=== PATIENT | female | born 1950 | race Caucasian/White ===

== ENCOUNTER → 2016-04-28 | Outpatient (CLI) | payer OTHER ==
[~2016-04-28] MED LIST: CHEMO IV; CITA40TA4 PO; CMP10 PO; DIPH-437 PO; ESTR0.5T3 PO; GREEPOW2 PO; HYDR-5688 PO; OMEP20CA9 PO; ONDA8TAB7 PO; POLY335025 PO; TYLOTC500 PO
--- NOTE | 2016-04-28 12:03 | Discharge Instructions ---
Discharge Instructions Procedure Procedure Date: Apr 28, 2016. Reason for visit: Right Axillary Lymph Node. Discharge Discharge Date: Apr 28, 2016. Discharge Diagnosis: Right axillary lymph node Instructions Activity Recommendations: No limitations Return to School/Work: no limitations Recommended Home Diet: Resume Previous Diet Provider Instructions: Ultrasound guided fine needle aspiration of a right axillary lymph node was performed with 3 passes utilizing 25-gauge needles. Specimens were reviewed by the pathologist in real-time and deemed adequate for diagnosis. There were no immediate complications. Allergies Coded Allergies: No Known Allergies (Verified , 06/04/14) [employer] [employer] Recommendations: Call your doctor if: * Temperature above 101 degrees * Pain not relieved by pain medicine ordered * There is increased drainage or redness from any incision * You have any unanswered questions or concerns. Your Doctors Instructions noted above were prepared by provider Hiren Joiner. Patient Signature Section: Patient Instructions Signature Page Yana Jakub Patient (or Guardian) Signature/Date: I have read and understand the instructions given to me by my caregivers. Caregiver/RN/Doctor Signature/Date: The above-named patient and/or guardian has received patient instructions on this date. + Original Patient Signature Page (only) stays with chart. Please make copy for patient.
--- NOTE | 2016-04-28 13:02 | DIAGNOSTIC IMAGING REPORT ---
ULTRASOUND-GUIDED FINE-NEEDLE ASPIRATION RIGHT AXILLARY LYMPH NODE CLINICAL HISTORY. FDG avid right axillary lymph node. History of lung cancer and pancreatic cancer. COMPARISON STUDY: PET/CT dated 04/13/2016. PROCEDURE: The risks, benefits, and alternatives to the procedure were discussed with the patient. Written informed consent was obtained. The patient was placed supine in ultrasound, and a 10 mm lymph node in the right axillary region was localized by ultrasound and selected for fine needle aspiration. This node appears heterogeneous and likely corresponds to the FDG avid lymph node of concern seen by PET. No additional concerning lymph nodes were identified. The right axilla was prepped and draped in the usual sterile fashion. The lymph node was aspirated under ultrasound guidance with 3 passes utilizing 25-gauge needles. The first 2 passes were reviewed by the pathologist in real-time and confirm the presence of lymphoid material. Material from the third pass was submitted for flow cytometry. The patient tolerated the procedure well and left the department in satisfactory condition. IMPRESSION: Completed fine-needle aspiration of a right axillary lymph node as above. Electronically signed by: Hiren Joiner M.D. 04/28/2016 1:00 PM Dictated Date/Time: 04/28/2016 12:57 PM
[2016-05-02 11:47] LABS: NEO FLOW LYMPH/LEUK STND SEE NEO MISC
== END | disposition home or self-care (01) ==
LOC: C.ULTR 10:23
PROVIDERS: ATTEND Internal Medicine Hematology
DX: R59.0 Localized enlarged lymph nodes (principal)

== ENCOUNTER 2017-02-06 15:52 | Inpatient (IN) | payer OTHER ==
[2017-02-06] VITALS (7 sets, daily range): BP systolic 152–173; BP diastolic 79–92; PULSE 81–93; TEMP 36.9–37.2; O2SAT 93–96; Ht 170.2 cm; Wt 81.3 kg
[~2017-02-06] VITALS: Ht 170.2 cm; Wt 81.3 kg
[2017-02-06] MEDS ORDERED: PANC6000 PO (17:06)
[2017-02-06] MEDS ORDERED: PANC24002 PO (17:06)
[2017-02-06] MEDS ORDERED: MISCCAP80 PO (17:06)
[2017-02-06 17:09] LABS: URINE APPEARANCE CLOUDY (CLEAR); URINE BILIRUBIN NEG (NEG); URINE COLOR DK YELLOW; URINE NITRITE POS (NEG); URINE PH 5.5 (4.5-7.5); URINE SPECIFIC GRAVITY 1.021 (1.000-1.030); UROBILINOGEN NEG (NEG)
[2017-02-06 17:15] LABS: INR 1.2 (0.9-1.1); PROTHROMBIN TIME (PATIENT) 12.7 SECONDS (9.0-12.0)
[2017-02-06 17:18] LABS: MANUAL MICROSCOPIC REQUIRED? NO; REVIEW REQ? NO
[2017-02-06 17:22] LABS: CALCIUM 8.6 mg/dl (8.5-10.1); CREATININE 0.67 mg/dl (0.60-1.20)
[2017-02-06] MEDS ORDERED: CEFTRIAXONE SOD INJ 1 GM ADDVIAL IV STA (17:53)
[2017-02-06 18:24] LABS: ANISOCYTOSIS PRESENT; HEMATOCRIT 23.7 % (37-47); LYMPH ABS # 0.45 K/uL (1.2-3.4); MEAN CELL VOLUME 88.4 fL (80-100); MEAN CORPUSCULAR HEMOGLOBIN 30.2 pg (25-34); MEAN CORPUSCULAR HGB CONC 34.2 g/dl (32-36); OVALOCYTES 2+; PLATELET COUNT 7 K/uL (130-400); POLYCHROMASIA 1+; RED BLOOD COUNT 2.68 M/uL (4.2-5.4); TEAR DROP CELLS 1+; VARIANT LYM ABS # 0.24 K/uL; WHITE BLOOD COUNT 1.86 K/uL (4.8-10.8)
[2017-02-06 18:25] LABS: COMPLETE YES
[2017-02-06] MEDS ORDERED: CEFEPIME IV 1,000 MG in DEXTROSE 5% 100ML 100 ML IV STA (18:34)
--- NOTE | 2017-02-06 19:05 | DIAGNOSTIC IMAGING REPORT ---
SINGLE VIEW CHEST CLINICAL HISTORY: Cough. FINDINGS: An AP, portable, upright chest radiograph is compared to study dated 06/28/2014 and correlated with PET/CT dated 12/30/2015. A left subclavian central venous infusion port is unchanged in position. The heart is mildly enlarged and there is atherosclerotic calcification of the thoracic aorta. Numerous bilateral pulmonary masses are identified and consistent with multifocal pulmonary metastatic disease. These lesions have increased in size from the 12/30/2015 PET examination. There is no evidence of superimposed airspace consolidation or large pleural effusion. No pneumothorax is seen. The skeletal structures are osteopenic. The bony thorax is grossly intact. Arthritic change is seen in the shoulders. IMPRESSION: 1. There is evidence of multifocal pulmonary metastatic disease. These lesions have increased in size from the 12/30/2015 PET examination. 2. There is no radiographic evidence of superimposed airspace consolidation or pleural effusion. 3. Mild cardiac enlargement. There is no radiographic evidence of congestive failure. Electronically signed by: Hiren Joiner M.D. 02/06/2017 7:03 PM Dictated Date/Time: 02/06/2017 7:01 PM
[2017-02-06] MEDS ORDERED: OPTIRAY 320 IV PRN (20:45)
[2017-02-06] MEDS ORDERED: PANTOprazole INJ 80 MG in SYRINGE 0 ML IV STA (21:25)
--- NOTE | 2017-02-06 21:57 | EMERGENCY ROOM VISIT NOTE ---
History Report prepared by Ngozi: Steve Andrews Under the Supervision of: Dr. Aubrey Barcenas M.D. First contact with patient: 15:58 Chief Complaint: REFERRED BY DOCTOR Stated Complaint: BLOOD TRANSFUSION NEEDED-SENT BY 'S OFFICE History of Present Illness The patient is a 66 year old female who presents to the Emergency Room with complaints of a low platelet count. She was referred to the ER by her PCP's office for a platelet count of 7,000. She has a past medical history of resolved pancreatic cancer and current lung cancer. Over the past week, she has noticed that she has been pale, short of breath, and lethargic. She also is having an abnormal amount of bruising to her body. This morning, the patient coughed up a could of drops of light red blood. She denies any epistaxis. Her last chemotherapy was March 2016. Pt denies LOC, headache, fevers, chills, diaphoresis, visual changes, neck pain, chest pain, nausea, vomiting, abdominal pain, back pain, melena, hematochezia, urinary symptoms, numbness, weakness, lymphadenopathy, rash, or other complaints. Source of History: patient Onset: recently Position: other (Global) Symptom Intensity: 7000 Quality: other (Low platelet counts) Timing: waxes/wanes Associated Symptoms: + cough, + SOB, + fatigue Review of Systems See HPI for pertinent positives and negatives. A total of ten systems were reviewed and were otherwise negative. Past Medical & Surgical Medical Problems: (1) Pancreatic cancer Surgical Problems: (1) H/O: hysterectomy (2) History of hip replacement Family History Cancer Gallbladder disease Heart disease Hypertension Kidney disease Lung disease Social History Smoking Status: Former Smoker Marital Status: Housing Status: lives with significant other Occupation Status: retired Current/Historical Medications Scheduled Acetaminophen/Diphenhydramine (Tylenol Pm), 1 TAB PO HS PRN Citalopram (Citalopram Hydrobromide), 40 MG PO QAM Green Tea (Camillia Sinensis) (Green Tea), 1 DOSE PO DAILY Omeprazole (Prilosec), 20 MG PO DAILY Pancrelipase (Lipase-Protease- (Creon), 2 CAP PO WM Pancrelipase (Lipase-Protease- (Creon), 1 CAP PO SNACKS Probiotic Product (Probiotic), 1 CAP PO DAILY Scheduled PRN Acetaminophen (Tylenol), 1,000 MG PO Q6 PRN for Pain or Fever Polyethylene Glycol 3350 (Miralax), 1 DOSE PO DAILY PRN for Constipation Allergies Coded Allergies: No Known Allergies (Verified , 02/06/17) Physical Exam Vital Signs Date Time Temp Pulse Resp B/P (MAP) Pulse Ox O2 Delivery O2 Flow Rate FiO2 02/06/17 21:19 37.2 85 20 152/92 93 02/06/17 20:46 37.2 85 20 158/91 95 Room Air 02/06/17 20:42 96 02/06/17 20:30 37.2 85 20 158/91 95 02/06/17 20:15 37.0 87 20 173/84 95 02/06/17 19:55 37.0 85 20 152/89 96 02/06/17 19:55 152/79 02/06/17 19:42 37.0 84 20 152/79 95 02/06/17 18:50 83 20 120/69 95 Room Air 02/06/17 17:50 99 20 149/76 95 Room Air 02/06/17 16:41 97 Room Air 02/06/17 16:30 78 20 124/83 98 Room Air 02/06/17 16:28 90 02/06/17 15:59 36.9 94 20 143/85 96 Room Air Physical Exam GENERAL: Awake, alert, well-appearing, in no distress HENT: Normocephalic, atraumatic. Oropharynx unremarkable. EYES: Normal conjunctiva. Sclera non-icteric. NECK: Supple. No nuchal rigidity. FROM. No JVD. OROPHARYNX: Palatal petechiae. RESPIRATORY: Clear to auscultation. CARDIAC: Regular rate, normal rhythm. Extremities warm and well perfused. Pulses equal. ABDOMEN: Soft, non-distended. No tenderness to palpation. No rebound or guarding. No masses. RECTAL: Deferred. MUSCULOSKELETAL: Chest examination reveals no tenderness. The back is symmetrical on inspection without obvious abnormality. There is no CVA tenderness to palpation. No joint edema. UPPER EXTREMITIES: Scattered petechiae noted bilaterally. LOWER EXTREMITIES: Calves are equal size bilaterally and non-tender. No edema. No discoloration. Scattered petechiae noted bilaterally. NEURO: Normal sensorium. No sensory or motor deficits noted. SKIN: Pale. No rash or jaundice noted. Medical Decision & Procedures ER Provider Diagnostic Interpretation: Radiology results as stated below per my review and radiologist interpretation: SINGLE VIEW CHEST CLINICAL HISTORY: Cough. FINDINGS: An AP, portable, upright chest radiograph is compared to study dated 06/28/2014 and correlated with PET/CT dated 12/30/2015. A left subclavian central venous infusion port is unchanged in position. The heart is mildly enlarged and there is atherosclerotic calcification of the thoracic aorta. Numerous bilateral pulmonary masses are identified and consistent with multifocal pulmonary metastatic disease. These lesions have increased in size from the 12/30/2015 PET examination. There is no evidence of superimposed airspace consolidation or large pleural effusion. No pneumothorax is seen. The skeletal structures are osteopenic. The bony thorax is grossly intact. Arthritic change is seen in the shoulders. IMPRESSION: 1. There is evidence of multifocal pulmonary metastatic disease. These lesions have increased in size from the 12/30/2015 PET examination. 2. There is no radiographic evidence of superimposed airspace consolidation or pleural effusion. 3. Mild cardiac enlargement. There is no radiographic evidence of congestive failure. Electronically signed by: Hiren Joiner M.D. 02/06/2017 7:03 PM Dictated Date/Time: 02/06/2017 7:01 PM Laboratory Results 02/06/17 16:12 Red Blood Count 2.68, Mean Corpuscular Volume 88.4, Mean Corpuscular Hemoglobin 30.2, Mean Corpuscular Hemoglobin Concent 34.2 02/06/17 16:12 Test 02/06/17 16:12 02/06/17 16:40 White Blood Count 1.86 K/uL (4.8-10.8) Red Blood Count 2.68 M/uL (4.2-5.4) Hemoglobin 8.1 g/dL (12.0-16.0) Hematocrit 23.7 % (37-47) Mean Corpuscular Volume 88.4 fL (80-100) Mean Corpuscular Hemoglobin 30.2 pg (25-34) Mean Corpuscular Hemoglobin Concent 34.2 g/dl (32-36) Platelet Count 7 K/uL (130-400) RDW Standard Deviation 56.1 fL (36.4-46.3) RDW Coefficient of Variation 18.1 % (11.5-14.5) Neutrophils % (Manual) 22.0 % Lymphocytes % (Manual) 24.0 % Variant Lymphocytes % (manual) 13.0 % Monocytes % (Manual) 1.0 % Promyelocytes % 3.0 % Blast Cells % 37.0 % Neutrophils # (Manual) 0.41 K/uL (1.4-6.5) Total Absolute Neutrophils 0.41 K/uL (1.4-6.5) Lymphocytes # (Manual) 0.45 K/uL (1.2-3.4) Absolute Variant Lymphocytes 0.24 K/uL Total Absolute Lymphocytes 0.69 K/uL (1.2-3.4) Monocytes # (Manual) 0.02 K/uL (0.11-0.59) Promyelocytes # 0.06 K/uL (0-0) Blast Cells # 0.69 K/uL (0-0) Polychromasia 1+ Anisocytosis PRESENT Macrocytosis PRESENT Tear Drop Cells 1+ Ovalocytes 2+ Prothrombin Time 12.7 SECONDS (9.0-12.0) Prothromb Time International Ratio 1.2 (0.9-1.1) Activated Partial Thromboplast Time 50.8 SECONDS (21.0-31.0) Partial Thromboplastin Ratio 2.0 Anion Gap 6.0 mmol/L (3-11) Est Creatinine Clear Calc Drug Dose 88.1 ml/min Estimated GFR () 104.7 Estimated GFR (Non- 90.3 BUN/Creatinine Ratio 20.0 (10-20) Calcium Level 8.6 mg/dl (8.5-10.1) Magnesium Level 2.1 mg/dl (1.8-2.4) Total Bilirubin 0.7 mg/dl (0.2-1) Direct Bilirubin 0.2 mg/dl (0-0.2) Aspartate Amino Transf (AST/SGOT) 15 U/L (15-37) Alanine Aminotransferase (ALT/SGPT) 26 U/L (12-78) Alkaline Phosphatase 118 U/L (45-117) Total Protein 6.1 gm/dl (6.4-8.2) Albumin 3.3 gm/dl (3.4-5.0) Lipase 36 U/L (73-393) Urine Color DK YELLOW Urine Appearance CLOUDY (CLEAR) Urine pH 5.5 (4.5-7.5) Urine Specific Gobles 1.021 (1.000-1.030) Urine Protein NEG (NEG) Urine Glucose (UA) NEG (NEG) Urine Ketones TRACE (NEG) Urine Occult Blood NEG (NEG) Urine Nitrite POS (NEG) Urine Bilirubin NEG (NEG) Urine Urobilinogen NEG (NEG) Urine Leukocyte Esterase TRACE (NEG) Urine WBC (Auto) 1-5 /hpf (0-5) Urine RBC (Auto) 0-4 /hpf (0-4) Urine Hyaline Casts (Auto) 1-5 /lpf (0-5) Urine Epithelial Cells (Auto) 10-20 /lpf (0-5) Urine Bacteria (Auto) 4+ (NEG) Laboratory results reviewed by ks Medications Administered Medications (Trade) Dose Ordered Sig/Bora Route Start Time Stop Time Status Last Admin Dose Admin Cefepime HCl 1000 mg/Dextrose 111.3 ml @ 200 mls/hr NOW STAT IV 02/06/17 18:34 02/06/17 19:07 DC 02/06/17 18:52 200 MLS/HR ECG Indication: SOB/dyspnea Rate (beats per minute): 95 Rhythm: normal sinus Findings: no acute ischemic change, no ectopy ED Course 1558: The patient was evaluated in room B10. A complete history and physical exam was performed. 1753: Ordered Rocephin Inj 1 gm IV 1834; Ordered Cefepime HCl 1000 mg/Dextrose 111.3 ml @ 200 mls/hr IV 1906: Upon reexamination, the patient was resting. I discussed the test results and treatment plan with her. The patient will be evaluated by Maral Sauceda, for further management. Medical Decision Triage Nursing notes reviewed. The patient's presentation and history were concerning for easy bleeding and possible thrombocytopenia. Patient was evaluated. Blood work was obtained. She had a significant pancytopenia noted on CBC. Chemistry panel is unremarkable. The patient had a neutropenia noted on her differential. Urinalysis revealed signs of infection. The patient was given IV cefepime. Consultation was made with her oncologist , Dr. Galaviz. He recommended a platelet transfusion. This was ordered. The patient was consented. Platelets were administered. Consultation was made with the [facility] hospitalist service. The patient was evaluated in the Emergency Room for further management. Medication Reconcilliation Current Medication List: was personally reviewed by me Blood Pressure Screening Patient's blood pressure: Elevated blood pressure Blood pressure disposition: Elevated BP felt to be situational Consults Time Called: [phone] Consulting Physician: Maral Sauceda Returned Call: [phone] Discussed the patient's case. The patient will be evaluated for further treatment and disposition. Impression Primary Impression: Pancytopenia Additional Impressions: Neutropenia UTI (urinary tract infection) Scribe Attestation The scribe's documentation has been prepared under my direction and personally reviewed by me in its entirety. I confirm that the note above accurately reflects all work, treatment, procedures, and medical decision making performed by me. Departure Information Dispostion Being Evaluated By Hospitalist Referrals Clemente Galaviz M.D. (PCP) Patient Instructions My [facility] [address] Problem Qualifiers
[2017-02-06] MEDS ORDERED: ALBUT/IPRATROP 3MG/0.5MG NEB 3 ML VIAL INH PRN (22:30)
--- NOTE | 2017-02-06 22:48 | DIAGNOSTIC IMAGING REPORT ---
CT ANGIOGRAM OF THE CHEST; CT SCAN OF THE ABDOMEN AND PELVIS WITH IV CONTRAST CLINICAL HISTORY: Atypical chest pain. Generalized abdominal pain. History of non-small cell lung cancer an pancreatic cancer. COMPARISON STUDY: Chest x-ray dated 02/06/2017. PET/CT dated 12/30/2015. TECHNIQUE: Following the IV administration of 120 of Optiray 320, CT angiogram of the chest is performed from the upper abdomen to the thoracic inlet using the pulmonary embolus protocol. CT scan of the abdomen and pelvis was then performed from the lung bases to the proximal femora. Images are reviewed in the axial, sagittal, and coronal planes. 3-D MIPS images of the chest were created and assessed. IV contrast was administered without complication. Automated dose control exposure was utilized. A dose lowering technique was utilized adhering to the principles of ALARA. CT DOSE: 2068.08 mGy.cm FINDINGS: CHEST: Thyroid: Imaged portions of the thyroid gland are normal in size and attenuation. There are numerous thyroid nodules. The largest appears hypervascular and is located in the right lobe measuring 1.7 cm. Thoracic aorta: The thoracic aorta is normal in caliber and demonstrates standard 3-vessel arch anatomy. No dissection is seen. A left subclavian central venous infusion port is in place. Pulmonary vasculature: The pulmonary trunk is normal in caliber. There are no filling defects identified in the main, lobar, or segmental pulmonary arteries to indicate pulmonary embolus. Heart: The heart is normal in size and configuration, and without pericardial effusion. Lungs and pleural spaces: There are numerous (greater than 20) large pulmonary mass lesions. Some of these contain central calcifications and foci of central cavitation. The appearance is consistent with multifocal pulmonary metastatic disease. A large lesion in the anterior right upper lobe on image #228 measures approximately 6 x 3 cm. A large lesion at the posterior right lung base on image #116 measures approximate 7 x 4 cm. A lesion in the left lower lobe on image #129 measures approximately 5 x 4 cm. Patchy airspace consolidation is identified in the right lower lobe. No pleural effusion is seen. The trachea and central airways are clear. Mediastinum: There are scattered subcentimeter mediastinal lymph nodes. These are not pathologically enlarged by size criteria. [place]: There are calcified hilar lymph nodes. No hilar adenopathy is identified. Axillae: There is no axillary lymphadenopathy. Bony thorax: The skeletal structures are heterogeneously osteopenic. No definite lytic or blastic lesions are identified. Advanced arthritic change is present in the shoulders. ABDOMEN AND PELVIS: Liver: The contrast-enhanced liver is normal in size and contour. The liver demonstrates diffusely diminished attenuation consistent with hepatic steatosis. There is trace pneumobilia. There is no intrahepatic or ductal dilatation. The hepatic veins and portal veins are patent. An ovoid hypervascular lesion in segment VIII measures 2.4 cm as seen on image #51. A subcentimeter hypervascular focus is seen in segment V on axial image #127. A 3.1 cm cystic lesion on the anterior aspect of the left lobe seen on image #56 is unchanged from previous. Gallbladder: Surgically absent noting clips in the gallbladder fossa. Spleen: Normal in size and attenuation. Pancreas: The pancreas is atrophic. A pancreatic stent is in place. There is peripancreatic stranding and trace fluid suggesting acute pancreatitis. No organized peripancreatic fluid collection is identified. The splenic vein is patent. Adrenal glands: A 1.4 cm nodule arising from or located adjacent to the right adrenal gland is unchanged from 12/30/2015 as seen on image #129. The adrenal glands are otherwise normal in appearance. Kidneys: The contrast enhanced kidneys demonstrate mild cortical atrophy and are without hydronephrosis. The kidneys enhance symmetrically. Scattered subcentimeter cortical hypodensities likely represent cysts but are too small for definitive characterization. Abdominal vasculature: The abdominal aorta is normal in course and caliber noting mild atherosclerotic calcification. Stomach and bowel: The duodenum is normal in configuration. There are large ventral hernias which contain nonobstructed loops of small bowel and colon. No bowel obstruction is seen. The appendix is well-visualized and normal. Peritoneum: There is no intraperitoneal free air or abdominal ascites. There is a fat-containing umbilical/ventral hernia. Lymphadenopathy: Prominent peripancreatic and portacaval nodes measure up to 10 mm short axis. Metallic fiducials are suggested in the portacaval node on image #117. An implant/node anterior to the abdominal aorta is seen on image #168 and measures 1.8 cm. Pelvic viscera: Evaluation of the pelvis is degraded by streak artifact from a right hip arthroplasty. The bladder, uterus, and adnexa are normal as visualized. Skeletal structures: The skeletal structures are heterogeneously osteopenic. Mild lumbosacral spondylosis is observed. No definite lytic or blastic lesions are seen. A right hip arthroplasty is in place. IMPRESSION: 1. There is no evidence of pulmonary embolus in the main, lobar, or segmental pulmonary arteries. 2. There is evidence of diffuse/multifocal pulmonary metastatic disease. These lesions have increased in size from the 12/30/2015 PET examination. 3. There is patchy airspace consolidation seen throughout the right lower lobe, likely representing an infectious/inflammatory pneumonitis. Clinical correlation will be required. 4. A pancreatic stent is in place. There is peripancreatic stranding and trace fluid, typical in appearance for acute pancreatitis. Correlation with the patient's serum amylase/lipase levels will be required. 5. There is a 2.4 cm ovoid lesion seen in hepatic segment VIII. This is markedly hypervascular and atypical in appearance for metastatic disease. Given the appearance a vascular lesion such as aneurysm/pseudoaneurysm is suspected, especially if there has been previous instrumentation. Other etiologies such as hypervascular metastasis or hemangioma are considered less likely. This could not be seen in the 12/30/2015 PET examination; however, comparison is significantly suboptimal due to lack of IV contrast on the prior study. Clinical correlation will be essential. 6. Hepatic steatosis. 7. Mildly enlarged peripancreatic lymph nodes, a lesion within/adjacent to the right adrenal gland, and an implant along the anterior aspect of the abdominal aorta are concerning for metastatic disease. Fiducials are identified in this region. 8. There are ventral hernias containing nonobstructed loops of small bowel and colon. No bowel obstruction is identified. 9. Additional findings as above. Electronically signed by: Hiren Joiner M.D. 02/06/2017 10:13 PM Dictated Date/Time: 02/06/2017 9:46 PM
--- NOTE | 2017-02-06 22:48 | DIAGNOSTIC IMAGING REPORT ---
CT SCAN OF THE BRAIN WITHOUT IV CONTRAST CLINICAL HISTORY: Headache. COMPARISON STUDY: No priors. TECHNIQUE: Unenhanced axial CT scan of the brain is performed from the vertex to the skull base. FINDINGS: Brain parenchyma: There are age-related involutional changes noting minimal subcortical and periventricular microangiopathic change. There is no hemorrhage, mass effect, or evidence of acute territorial ischemia by CT criteria. Cordon-white matter is preserved. No extra-axial fluid collection is seen. Ventricles, sulci, cisterns: Prominent secondary to involutional change. Intracranial vasculature: Intracranial vessels at the skull base are normal as visualized. Calvarium: Unremarkable. Sinuses and mastoids: The visualized paranasal sinuses are clear. The mastoid air cells are well pneumatized. Orbits: The bony orbits are grossly intact. IMPRESSION: There is no hemorrhage, mass effect, or evidence of acute territorial ischemia by CT criteria. Electronically signed by: Hiren Joiner M.D. 02/06/2017 9:48 PM Dictated Date/Time: 02/06/2017 9:47 PM
[2017-02-06] MEDS ORDERED: ALBUT/IPRATROP 3MG/0.5MG NEB 3 ML VIAL INH STA (23:13)
--- NOTE | 2017-02-06 23:13 | HISTORY & PHYSICAL EXAMINATION ---
DATE OF ADMISSION: 02/06/2017 PRIMARY CARE PHYSICIAN: Yoly Foy MD. CHIEF COMPLAINT: Abnormal blood work. HISTORY OF PRESENT ILLNESS: History obtained from patient and records. Medical history is significant for pancreatic cancer status post surgery/ chemotherapy 2014, NSCLC (adenocarcinoma) sp chemotherapy 2015, past tobacco abuse, history of ataxia telangiectasia mutation as per records, recurrent UTIs secondary to chronic interstitial cystitis , mood disorder. In June 2015, the patient was noted to have incidental findings of new bilateral lung nodules on CT surveillance study for her pancreatic cancer. FNA showed adenocarcinoma. Patient underwent wedge resection of left lower lobe nodule. Chemotherapy from September to March 2016 by [facility]. She subsequently decided to hold off any kind of treatments. Outpatient blood work last July 2016 showed white cell count of 3.69, Hemoglobin drop to 10 from normal baselines. In the last few weeks, the patient noted easy bruising. She also noted dark stools, some vague left-sided abdominal discomfort. Denies excessive intake of NSAIDs. No hematemesis. Last 2 weeks, the patient also noted different smelly urine. Yesterday, patient noted noisy breathing like "bubbles in my chest." Some shortness of breath on exertion. This morning, px woke up with hemoptysis. achy headache symptoms as well. Outpatient lab work showed hemoglobin of 8.6, hematocrit 27, white cell count 2.3, platelets noted to be 7. Patient sent to the Emergency Room. One unit pheresed platelets transfused. Px given ceftriaxone for UTI. MEDICAL HISTORY: colonoscopy October 2013 showed hyperplastic polyp and diverticulosis. SURGERIES: She had hysterectomy, oophorectomy, Whipple procedure, tubal ligation, tonsillectomy, partial Whipple procedure, hip replacement, lung nodule biopsy. HOME MEDICATIONS: Includes Creon, MiraLax, probiotic, Tylenol, citalopram, green tea, Prilosec. ALLERGIES: No known drug allergies. FAMILY HISTORY: Kidney cancer, heart disease, skin cancer. PERSONAL AND SOCIAL HISTORY: Past tobacco abuse, no chronic intake of alcoholic beverages. Retired field case manager. REVIEW OF SYSTEMS: As per HPI, all other ROS negative. PHYSICAL EXAMINATION: VITAL SIGNS: Blood pressure was noted to be 120/69, pulse rate 83, RR 22, T 37 sats 95% on room air. GENERAL: Noted to be pleasant, no respiratory distress. SKIN: Pallor, ecchymosis on the arms. warm. HEENT: Pale palpebral conjuctivae. Dry buccal mucosa. Pupils equally reactive to light. Dry buccal mucosa. NECK: Short neck. No JVD. Supple, no tenderness. CHEST: Rhonchi, no tenderness. ABDOMEN: Some distension, nontender. RECTAL: Intact sphincter, dark stool, heme positive. EXTREMITIES: Minimal LE edema, no tenderness, No gross deformities. NEUROLOGIC: Coherent. No gross focality. LABORATORIES: Hemoglobin was noted to be 8.1, hematocrit 30.7, white cell count 1.86, platelets noted to be 7. Sodium 137, potassium 4, chloride 105, CO2 26, BUN 40, creatinine 0.6, glucose 154. Chest x-ray, multi focal pulmonary metastatic disease, increased in size from 2015 PET exam, mild cardiac enlargement. CT head no acute pathology CT chest, abdomen and pelvis : 1. There is no evidence of pulmonary embolus in the main, lobar, or segmental pulmonary arteries. 2. There is evidence of diffuse/multifocal pulmonary metastatic disease. These lesions have increased in size from the 12/30/2015 PET examination. 3. There is patchy airspace consolidation seen throughout the right lower lobe, likely representing an infectious/inflammatory pneumonitis. Clinical correlation will be required. 4. A pancreatic stent is in place. There is peripancreatic stranding and trace fluid, typical in appearance for acute pancreatitis. Correlation with the patient's serum amylase/lipase levels will be required. 5. There is a 2.4 cm ovoid lesion seen in hepatic segment VIII. This is markedly hypervascular and atypical in appearance for metastatic disease. Given the appearance a vascular lesion such as aneurysm/pseudoaneurysm is suspected, especially if there has been previous instrumentation. Other etiologies such as hypervascular metastasis or hemangioma are considered less likely. This could not be seen in the 12/30/2015 PET examination; however, comparison is significantly suboptimal due to lack of IV contrast on the prior study. Clinical correlation will be essential. 6. Hepatic steatosis. 7. Mildly enlarged peripancreatic lymph nodes, a lesion within/adjacent to the right adrenal gland, and an implant along the anterior aspect of the abdominal aorta are concerning for metastatic disease. Fiducials are identified in this region. 8. There are ventral hernias containing nonobstructed loops of small bowel and colon. No bowel obstruction is identified. 9. Additional findings as above. UA WBCs, nitrite positive ASSESSMENT: 1. Pancytopenia Anemia, leukopenia noted on 07/2016 outpatient blood work possible bone marrow involvement Possible leukemia with note of blast cells, px predisposed by hx ataxia telangiectasia mutation hx lung cancer sp chemotherapy (2015), CT imaging demonstrate progression of disease. hx pancreatic cancer status post surgery/chemotherapy (2014) 2. UGIB Patient predisposed by severe thrombocytopenia. 3. hemoptysis secondary to CAP Patient predisposed by severe thrombocytopenia. No sepsis for now 4. complicated UTI history chronic interstitial cystitis as per records no sepsis 5. Hyperglycemia rule out diabetes mellitus 6. past tobacco abuse PLAN: PCU. Transfuse platelets for severe thrombocytopenia with bleeding manifestations. Transfuse pRBC for symptomatic anemia. Anemia workup Peripheral blood smear Hematology consult RE pancytopenia (Patient known to Dr. Galaviz.) IV PPI. GI consult RE UGIB Follow urine cultures Levaquin for community-acquired pneumonia and complicated UTI. Solu-Medrol 1 dose now for pneumonia with hemoptysis. nebs, antitussives when necessary May need Pulmonary consultation if hemoptysis persistent. Check hemoglobin A1c DVT prophylaxis, SCDs RE thrombocytopenia DNR. Patient's son requesting for updates from providers. Mr. Rj Call at [phone]. MTDD
[2017-02-06] MEDS ORDERED: INSULIN GLARGINE SOLOSTAR 100 UNITS/ML 3 ML PEN SC STA (23:14)
[2017-02-06] MEDS ORDERED: TRAMADOL HCL 50 MG TAB PO PRN (23:15)
[2017-02-06] MEDS ORDERED: POLYETHYLENE (MIRALAX) 17 GM PACK PO PRN (23:15)
[2017-02-06] MEDS ORDERED: LORAZEPAM 2 MG/ML 1 ML VIAL IV PRN (23:15)
[2017-02-06] MEDS ORDERED: NITROGLYCERIN 0.4 MG SL PER TAB CHARGE SL PRN (23:15)
[2017-02-06] MEDS ORDERED: ONDANSETRON INJ 2 MG/ML 2 ML VIAL IV PRN (23:15)
[2017-02-06] MEDS ORDERED: HYDROmorphone INJ 0.5 MG/0.5 ML SYR IV PRN (23:15)
[2017-02-06] MEDS ORDERED: METHYLPREDNISOLONE IV 20 MG in SYRINGE 0 ML IV STA (23:17)
[2017-02-06] MEDS ORDERED: DOXYCYCLINE IV 100 MG in DEXTROSE 5% 100ML 100 ML IV STA (23:18)
[2017-02-06] MEDS: ACETAMINOPHEN 325 MG TAB PO PRN (23:57)
[2017-02-07] VITALS (18 sets, daily range): BP systolic 129–157; BP diastolic 76–98; PULSE 79–90; TEMP 36.8–37.7; O2SAT 91–96
[2017-02-07 00:15] LABS: FERRITIN 93.1 ng/ml (8.0-388.0); MEAN CELL VOLUME 87.6 fL (80-100); MEAN CORPUSCULAR HEMOGLOBIN 29.9 pg (25-34); MEAN CORPUSCULAR HGB CONC 34.1 g/dl (32-36); PLATELET COUNT 8 K/uL (130-400); RED BLOOD COUNT 2.51 M/uL (4.2-5.4); WHITE BLOOD COUNT 2.48 K/uL (4.8-10.8)
[2017-02-07] MEDS ORDERED: LORAZEPAM 0.5 MG TAB PO ONE (00:15)
[2017-02-07] MEDS ORDERED: SODIUM CHLORIDE 0.9% 1000ML 1,000 ML IV SCH (00:30)
[2017-02-07] MEDS ORDERED: LEVOFLOXACIN 250 MG TAB PO ONE (01:00)
[2017-02-07] MEDS ORDERED: LEVOFLOXACIN 750 MG TAB PO ONE (01:15)
[2017-02-07] MEDS ORDERED: LEVOFLOXACIN CONSULT ACTIVE PRN (01:15)
[2017-02-07] MEDS: PANTOprazole INJ 40 MG in DEXTROSE 5% 100ML 100 ML IV SCH ×2 (01:32→05:38)
[2017-02-07] MEDS ORDERED: CEFTRIAXONE SOD INJ 1 GM in DEXTROSE 5% ADD-VANTAGE 50ML 50 ML IV SCH (03:00)
[2017-02-07] MEDS ORDERED: BENZONATATE 100MG CAP PO PRN (05:15)
[2017-02-07 07:00] LABS: OVALOCYTES 1+; PLT ESTIMATE SIGNIFIC DECREASED; POLYCHROMASIA 1+; TEAR DROP CELLS 1+
[2017-02-07 07:04] LABS: BASO ABS # 0.02 K/uL (0-0.2); BASOPHIL % 0.9 %; COMPLETE YES; EOSINOPHIL % 0.9 %; IPF 14.9 % (0.9-8.3); LYMPHOCYTE % 36.3 %; NEUTROPHILS % 15.9 %
[2017-02-07 07:13] LABS: HEMATOCRIT 24.2 % (37-47); MEAN CELL VOLUME 87.4 fL (80-100); MEAN CORPUSCULAR HEMOGLOBIN 31.4 pg (25-34); RED BLOOD COUNT 2.77 M/uL (4.2-5.4); WHITE BLOOD COUNT 3.82 K/uL (4.8-10.8)
[2017-02-07 07:15] LABS: ESTIMATED AVERAGE GLUCOSE 137 mg/dl; HA1C FLAG Normal (Normal)
[2017-02-07] MEDS: CITALOPRAM 40 MG TAB PO SCH (07:47)
[2017-02-07 07:48] LABS: PLATELET COUNT 10 K/uL (130-400)
[2017-02-07] MEDS ORDERED: NON-FORMULARY MEDICATION (Probiotic Product (Probiotic) 1 CAP) PO SCH (09:00)
--- NOTE | 2017-02-07 09:00 | Progress Note ---
Progress Note Date of Service Feb 07, 2017. (Christianne Morales ., CHRIS) Progress Note Discussed case with Dr. Pascal, Dr. Crowe and Ms. Call. Pt with intermittent melena x 1-2 weeks and hemoptysis. No hematemesis. No abdominal pain. Does not use NSAIDs. Pt is not interested in endoscopic evaluation at this point in time. With extent of thrombocytopenia our recommendation would be IV PPI BID while admitted, converted to PO at time of discharge or transfer to a tertiary care center for endoscopic evaluation. GI to sign off. Please call with any questions or concerns. (Christianne Morales ., CHRIS) I went to evaluate the patient. It appears that the GI consult was being canceled as the patient is presently seeking palliative care and wishes to undergo no interventional procedures at this time. We did talk with the patient and would be happy to evaluate her at any time in the future if requested. Please call with any questions or concerns. (Kathrin Pascal, DO)
[2017-02-07 09:06] LABS: COMPLETE YES; POLYCHROMASIA 1+; TEAR DROP CELLS 1+
--- NOTE | 2017-02-07 10:22 | Progress Note ---
Medicine Progress Note Date & Time of Visit: Feb 07, 2017 at 10:03. Subjective Pt was seen and examined Lying in bed with no distress Pt said that she feels slightly better She said that she had one BM today that was dark Denies any chest pain, palpitation, dizziness Objective Last 8 Hrs Date Time Temp Pulse Resp B/P (MAP) Pulse Ox O2 Delivery O2 Flow Rate FiO2 02/07/17 08:24 36.9 84 16 137/80 (99) 96 Nasal Cannula 02/07/17 08:00 95 Nasal Cannula 2.0 02/07/17 04:15 79 20 141/95 95 2.0 02/07/17 04:00 95 Nasal Cannula 2.0 02/07/17 03:40 37.0 90 22 157/98 94 02/07/17 03:10 37.1 82 19 145/85 96 2.0 02/07/17 02:55 37.0 80 23 141/86 95 2.0 02/07/17 02:41 37.3 81 20 147/88 95 2.0 Physical Exam: General- adult, No acute distress Head- atraumatic Eyes- PERRL, EOMI ENT- oropharynx clear Neck- supple, no JVD Lungs- No wheezing, no rales Heart- regular rhythm; no murmur Abdomen- normal bowel sounds, soft Extremities- no calf tenderness Neuro- alert, AAOx3, no motor and sensory deficit Skin- warm & dry Laboratory Results: Last 24 Hours Test 02/06/17 16:12 02/06/17 16:40 02/06/17 23:38 02/06/17 23:47 White Blood Count 1.86 K/uL 2.48 K/uL Red Blood Count 2.68 M/uL 2.51 M/uL Hemoglobin 8.1 g/dL 7.5 g/dL Hematocrit 23.7 % 22.0 % Mean Corpuscular Volume 88.4 fL 87.6 fL Mean Corpuscular Hemoglobin 30.2 pg 29.9 pg Mean Corpuscular Hemoglobin Concent 34.2 g/dl 34.1 g/dl Platelet Count 7 K/uL 8 K/uL RDW Standard Deviation 56.1 fL 55.9 fL RDW Coefficient of Variation 18.1 % 18.3 % Neutrophils % (Manual) 22.0 % 15.9 % Lymphocytes % (Manual) 24.0 % 36.3 % Variant Lymphocytes % (manual) 13.0 % Monocytes % (Manual) 1.0 % Promyelocytes % 3.0 % Blast Cells % 37.0 % 46.0 % Neutrophils # (Manual) 0.41 K/uL 0.39 K/uL Total Absolute Neutrophils 0.41 K/uL 0.39 K/uL Lymphocytes # (Manual) 0.45 K/uL 0.90 K/uL Absolute Variant Lymphocytes 0.24 K/uL Total Absolute Lymphocytes 0.69 K/uL 0.90 K/uL Monocytes # (Manual) 0.02 K/uL Promyelocytes # 0.06 K/uL Blast Cells # 0.69 K/uL 1.14 K/uL Polychromasia 1+ 1+ Anisocytosis PRESENT Macrocytosis PRESENT Tear Drop Cells 1+ 1+ Ovalocytes 2+ 1+ Prothrombin Time 12.7 SECONDS Prothromb Time International Ratio 1.2 Activated Partial Thromboplast Time 50.8 SECONDS Partial Thromboplastin Ratio 2.0 Sodium Level 137 mmol/L Potassium Level 4.0 mmol/L Chloride Level 105 mmol/L Carbon Dioxide Level 26 mmol/L Anion Gap 6.0 mmol/L Blood Urea Nitrogen 14 mg/dl Creatinine 0.67 mg/dl Est Creatinine Clear Calc Drug Dose 88.1 ml/min Estimated GFR () 104.7 Estimated GFR (Non- 90.3 BUN/Creatinine Ratio 20.0 Random Glucose 154 mg/dl Estimated Average Glucose 137 mg/dl Hemoglobin A1c 6.4 % Calcium Level 8.6 mg/dl Magnesium Level 2.1 mg/dl Total Bilirubin 0.7 mg/dl Direct Bilirubin 0.2 mg/dl Aspartate Amino Transf (AST/SGOT) 15 U/L Alanine Aminotransferase (ALT/SGPT) 26 U/L Alkaline Phosphatase 118 U/L Total Protein 6.1 gm/dl Albumin 3.3 gm/dl Lipase 36 U/L Urine Color DK YELLOW Urine Appearance CLOUDY Urine pH 5.5 Urine Specific [place] 1.021 Urine Protein NEG Urine Glucose (UA) NEG Urine Ketones TRACE Urine Occult Blood NEG Urine Nitrite POS Urine Bilirubin NEG Urine Urobilinogen NEG Urine Leukocyte Esterase TRACE Urine WBC (Auto) 1-5 /hpf Urine RBC (Auto) 0-4 /hpf Urine Hyaline Casts (Auto) 1-5 /lpf Urine Epithelial Cells (Auto) 10-20 /lpf Urine Bacteria (Auto) 4+ Nucleated RBC Absolute Count (auto) 0.03 K/uL Eosinophils % (Manual) 0.9 % Basophils % (Manual) 0.9 % Nucleated Red Blood Cells % 1.1 % Eosinophils # (Manual) 0.02 K/uL Basophils # (Manual) 0.02 K/uL Platelet Estimate SIGNIFIC DECREASED Immature Platelet Fraction 14.9 % Peripheral Blood Smear Path Consult Absolute Reticulocyte Count 0.10 10^6/uL Percent Reticulocyte Count 4.1 % Iron Level 144 mcg/dl Total Iron Binding Capacity 257 mcg/dl Transferrin 191 mg/dl Transferrin % Saturation 54 % Ferritin 93.1 ng/ml Vitamin B12 Level > 2000 pg/mL Folate 18.04 ng/mL Hepatitis C Antibody Screen NEG Test 02/07/17 06:14 White Blood Count 3.82 K/uL Red Blood Count 2.77 M/uL Hemoglobin 8.7 g/dL Hematocrit 24.2 % Mean Corpuscular Volume 87.4 fL Mean Corpuscular Hemoglobin 31.4 pg Mean Corpuscular Hemoglobin Concent 36.0 g/dl Platelet Count 10 K/uL RDW Standard Deviation 53.3 fL RDW Coefficient of Variation 17.3 % Nucleated RBC Absolute Count (auto) 0.06 K/uL Neutrophils % (Manual) 16.0 % Lymphocytes % (Manual) 13.0 % Monocytes % (Manual) 3.0 % Blast Cells % 68.0 % Nucleated Red Blood Cells % 1.5 % Neutrophils # (Manual) 0.61 K/uL Total Absolute Neutrophils 0.61 K/uL Lymphocytes # (Manual) 0.50 K/uL Total Absolute Lymphocytes 0.50 K/uL Monocytes # (Manual) 0.11 K/uL Blast Cells # 2.60 K/uL Polychromasia 1+ Tear Drop Cells 1+ Date/Time Source Procedure Growth Status 02/07/17 06:15 Blood Blood Culture Pending Received 02/07/17 06:14 Blood Blood Culture Pending Received 02/06/17 16:40 Urine , Clean Catch Urine Culture Pending Received Assessment & Plan Pneumonia Present with Hemoptysis associated with SOB CTA chest showed no evidence of pulmonary embolus in the main, lobar, or segmental pulmonary arteries. There is evidence of diffuse/multifocal pulmonary metastatic disease and patchy airspace consolidation seen throughout the right lower lobe On levaquin PO continue monitor Pancytopenia Platelet was 7K and hgb 8.1 on admission received 2 units platelet and 1 unit PRBC Blast on peripheral smear possible bone marrow involvement Case discussed with Oncology Possible leukemia with note of blast cell Check flow cytometry and fibrinogen Pt refused any invasive procedure such as bone marrow biopsy Hx lung cancer sp chemotherapy (2015), CTA chest showed evidence of diffuse/multifocal pulmonary metastatic disease. lesions have increased in size from the 12/30/2015 PET examination. She does not interested on any chemo therapy treatment focus on supportive care Hx pancreatic cancer s/p surgery/chemotherapy (2015) CT showed is peripancreatic stranding and trace fluid, typical in appearance for acute pancreatitis Low lipase Tolerated clear liquid diet Continue monitor Hepatic Mass CT showed a 2.4 cm ovoid lesion seen in hepatic segment VIII. This is markedly hypervascular and atypical in appearance for metastatic disease. No invasive procedure as per patient She does not want chemo therapy Hemoptysis Predisposed by severe thrombocytopenia and cough Case discussed with GI No intervention due to her low platelet Will need to transfer to a tertiary center if any procedure needed. Continue monitor h/h GI bleed Has been having dark stool Positive guaiac Protonix drip d/c starting on protonix BID IV GI consult cancelled since pt does not want any interventional procedure continue monitor h/h UTI Continue Levaquin Urine cx growth gram negative bacilli Hyperglycemia Hba1c 6.4 continue monitor BS DVT px on SCDs CODE STATUS DNR Consultants: Oncology/Hematology Current Inpatient Medications: Current Inpatient Medications Medications (Trade) Dose Ordered Sig/Bora Route Start Time Stop Time Status Last Admin Dose Admin Ioversol (Optiray 320) 111 ml UD PRN IV 02/06/17 20:45 02/10/17 20:44 Albuterol/ Ipratropium (Duoneb) 3 ml Q2H PRN INH 02/06/17 22:30 03/08/17 22:29 Sodium Chloride 1,000 ml @ 50 mls/hr Q20H IV 02/07/17 00:30 03/09/17 00:29 02/07/17 00:51 50 MLS/HR Acetaminophen (Tylenol Tab) 650 mg Q4H PRN PO 02/06/17 23:15 03/08/17 23:14 02/06/17 23:57 650 MG Nitroglycerin (Nitrostat Tab) 0.4 mg UD PRN SL 02/06/17 23:15 03/08/17 23:14 Ondansetron HCl (Zofran Inj) 4 mg Q6H PRN IV 02/06/17 23:15 03/08/17 23:14 Lorazepam (Ativan Inj) 0.5 mg Q4H PRN IV 02/06/17 23:15 03/08/17 23:14 Tramadol HCl (Ultram Tab) 25 mg Q6H PRN PO 02/06/17 23:15 03/08/17 23:14 Hydromorphone HCl (Dilaudid Inj) 0.5 mg Q3H PRN IV 02/06/17 23:15 02/20/17 23:14 Citalopram Hydrobromide (celeXA TAB) 40 mg QAM PO 02/07/17 09:00 03/09/17 08:59 02/07/17 07:47 40 MG Polyethylene (Miralax Powder Packet) 17 gm DAILY PRN PO 02/06/17 23:15 03/08/17 23:14 Heparin Sodium (Porcine) (Heparin 100 Unit/ml 5ml Flush) 5 ml PRN PRN IV 02/07/17 00:45 03/09/17 00:44 Levofloxacin (Consult) 1 ea UD PRN N/A 02/07/17 01:15 03/09/17 01:14 Benzonatate (Tessalon Perles Cap) 100 mg Q8H PRN PO 02/07/17 05:15 03/09/17 05:14 Levofloxacin (Levaquin Tab) 750 mg HS PO 02/07/17 21:00 02/12/17 21:01 Pantoprazole Sodium 40 mg/ Syringe 10 ml @ 5 mls/min DAILY@ IV 02/07/17 21:00 03/09/17 20:59
[2017-02-07] MEDS ORDERED: DOXYCYCLINE IV 100 MG in DEXTROSE 5% 100ML 100 ML IV SCH (12:00)
[2017-02-07 12:18] LABS: HEMATOCRIT 24.2 % (37-47)
[2017-02-07] MEDS ORDERED: NURSING VERBAL MED ORDER ONE (13:45)
--- NOTE | 2017-02-07 17:22 | Medical Consult ---
Consultation Date of Consultation: Feb 07, 2017. Attending Physician: Deisi Crowe M.D. History of Present Illness 66-year-old female, Pancreatic cancer: - T3 N0 M0, S/P neoadjuvant chemotherapy with Abraxane and gemcitabine between June,-10/2014 -S/P Whipple 's procedure on 12/31/2014, pathology showed very good response with residual 1 mm focus of adenocarcinoma all 10 lymph nodes negative for metastatic disease. Lung cancer diagnosis: - FNA from the left lower lobe lung nodule showed adenocarcinoma but appears to be somewhat different from the pancreatic cancer, lung lesion appears to be low- grade tumor. 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 ~KRAS positive. Treatment received: -Nivolumab (Opdivo) between September,-March,. She did not respond quite well with the immunotherapy with Nivolumab (Opdivo) and so in March, she decided to discontinue any kind of treatment and has remained under observation since then. Recent imaging studies: -PET-CT scan~done on 04/05/2016 showed metabolically active bilateral lung nodules which have increased in the size, new right axillary lymph node which is metabolic active which is suspicious for metastatic disease, no bone or liver lesions noted. Metabolically active right thyroid lobe lesion noted. ~ -FNA from the right axillary lymph node~-->~benign findings (April,). ~ -PET-CT scan done on 08/17/2016 showed interval increase in the size and metabolic activity of the multiple bilateral lung nodules/masses. ~No other metabolically active disease noted anywhere else. Chest x-ray done on 12/09/2016 showed multiple diffuse bilateral lung nodules Current treatment: None. She is admitted at [facility] on 02/06/2017 for increasing bruising, tiredness, mild hemoptysis, Blood workup done on 02/06/2017 at [facility] office: -WBC 2300, H&H of 8.6/25.8, Platelet count of 7000. -BUN/Creat: 14/0.7, normal liver function test. -Vitamin B12 --> > 2000, Ferritin level--> 118, serum iron 152, iron saturation 58%. Earlier blood workup done on 12/07/2016 showed WBC of 2200, H&H of 11.7/36.8, Platelet count of 165,000. ANC 1400. I saw her at bedside, she received 2 units of platelets as well as 1 unit of PRBC, she says that she is feeling somewhat better, also has some urinary symptoms in the form of cloudy urine, no burning sensation, no new hematuria, no leg edema. No fever at present. Past medical/surgical history: Diverticulosis, S/P Whipple 's procedure, tonsillectomy, hip replacement, hysterectomy and oophorectomy. Medications: Please review her chart for detailed list of medications. REVIEW OF SYSTEMS: Constitutional: Weight loss present, denies weakness and fatigue present, low- grade fever, no chills. Head: She had some nonspecific headache which has improved, some mild dizziness present, Eyes: no recent change in the vision, no diplopia ENT: no hearing loss, no earache.No epistaxis, No nasal discharge or stuffiness Resp: cough present, shortness of breath present, hemoptysis earlier, no hemoptysis at this time, no chest pain, No wheezing. Cardiac: no anginal chest pain, no dyspnea on exertion and no edema GI: no abdominal pain, no heartburn, no diarrhea, no constipation, no blood/ melena, no nausea, no vomiting Musculoskeletal: Some mild back pain present. : no nocturia and no frequency, no hematuria. Neuro: no memory loss, no weakness, no falling, no numbness or tingling and no vertigo Psych: Spirits good. No depression. No anxiety. No psychosis Heme: No bleeding, no swollen nodes Endo: no thyroid disease; Skin: No rash, no itching. no bruising. Legs: no leg edema. On exam: - Alert and oriented x3, thin built woman, not in any distress. - HEENT: no icterus, no pallor, Throat: Normal. - Neck: No palpable cervical lymphadenopathy. - Chest: clear to auscultation. - Abdomen: soft, nontender, no hepatomegaly, no splenomegaly. - No focal neuro deficit. - Extremities: no finger clubbing, no leg edema. Bruising involving the extremities present. Blood workup: -WBC 1800, H&H of 8.123, Platelet count--> 7000. -peripheral smear shows presence of immature WBCs, appears to be myeloblast, nucleated RBCs present, few teardrop cells noted -PT 12.7, PTT 50.8 -BUN/Creat: 14/0.6, normal liver function test -units shows WBC 1-5 per HPF, leukocyte esterase trace positive. -CT scan of the abdomen and pelvis done on 02/06/2017 showed no evidence of pulmonary embolism, diffuse/multifocal pulmonary metastatic disease, at least over 20 lung nodules noted, measuring around 5 to 7 cm, patchy airspace consolidation in the right lower lobe, pancreatic stent noted, possible liver metastatic disease noted, hepatic steatosis noted, mildly enlarged peripancreatic lymph node noted. ASSESSMENT AND PLAN: 66-year-old female, who had pancreatic cancer earlier in 2014, she received neoadjuvant Abraxane gemcitabine and then she underwent Whipple 's procedure, had a very good pathological response, subsequently in early 2015 noticed to have lung nodules, biopsy from that confirmed the lung cancer, she received about 6 months of unit therapy in the last 6 months of 2015 , now she is not on any specific treatment since early 2016, blood workup done few months back showed some mildly low white blood cell count, now she has pancytopenia, significantly low platelet count and 7000, bruising present, hemoptysis present, imaging studies done recently showed multiple lung lesions, over 20 in number suggest disease progression in the lung, she received 2 units of platelets and1 unit of PRBC, peripheral smear revealed presence of blast which has raised the possibility of acute myeloid leukemia, perhaps M 3 variant. I discussed with her regarding recent diagnostic workup, she is not interested in pursuing aggressive kind of treatment in her case, she would like to focus supportive and symptomatic treatment. Presently she is receiving treatment for UTI. Will continue with blood and platelet transfusion as needed for symptom management. Will send blood for flow cytometry for further evaluation for confirmation of the diagnosis in her case but she is not interested in any kind of intensive chemotherapy treatment for leukemia diagnosis. Once she is stable enough, likely to go home with home hospice service. Thanks for the consultation. Dr. Clemente Galaviz Hem/Onc (This note was completed using the dictation program Fluency Direct. As such, there may be misspellings, word substitutions, or other variations that should not change the essence of the clinical content of this encounter note. If there is need for further clarification, please direct questions to the provider listed above.) Past Medical/Surgical History Medical Problems: (1) Neutropenia Status: Acute (2) Pancytopenia Status: Acute (3) UTI (urinary tract infection) Status: Acute Family History Cancer Gallbladder disease Heart disease Hypertension Kidney disease Lung disease Social History Smoking Status: Never Smoker Marital Status: Housing Status: lives with significant other Occupation Status: retired Allergies Coded Allergies: No Known Allergies (Verified , 02/06/17) Current Inpatient Medications Current Inpatient Medications Medications (Trade) Dose Ordered Sig/Bora Route Start Time Stop Time Status Last Admin Dose Admin Ioversol (Optiray 320) 111 ml UD PRN IV 02/06/17 20:45 02/10/17 20:44 Albuterol/ Ipratropium (Duoneb) 3 ml Q2H PRN INH 02/06/17 22:30 03/08/17 22:29 Acetaminophen (Tylenol Tab) 650 mg Q4H PRN PO 02/06/17 23:15 03/08/17 23:14 02/06/17 23:57 650 MG Nitroglycerin (Nitrostat Tab) 0.4 mg UD PRN SL 02/06/17 23:15 03/08/17 23:14 Ondansetron HCl (Zofran Inj) 4 mg Q6H PRN IV 02/06/17 23:15 03/08/17 23:14 Lorazepam (Ativan Inj) 0.5 mg Q4H PRN IV 02/06/17 23:15 03/08/17 23:14 Tramadol HCl (Ultram Tab) 25 mg Q6H PRN PO 02/06/17 23:15 03/08/17 23:14 Hydromorphone HCl (Dilaudid Inj) 0.5 mg Q3H PRN IV 02/06/17 23:15 02/20/17 23:14 Citalopram Hydrobromide (celeXA TAB) 40 mg QAM PO 02/07/17 09:00 03/09/17 08:59 02/07/17 07:47 40 MG Polyethylene (Miralax Powder Packet) 17 gm DAILY PRN PO 02/06/17 23:15 03/08/17 23:14 Heparin Sodium (Porcine) (Heparin 100 Unit/ml 5ml Flush) 5 ml PRN PRN IV 02/07/17 00:45 03/09/17 00:44 Levofloxacin (Consult) 1 ea UD PRN N/A 02/07/17 01:15 03/09/17 01:14 Benzonatate (Tessalon Perles Cap) 100 mg Q8H PRN PO 02/07/17 05:15 03/09/17 05:14 Levofloxacin (Levaquin Tab) 750 mg HS PO 02/07/17 21:00 02/12/17 21:01 Pantoprazole Sodium 40 mg/ Syringe 10 ml @ 5 mls/min DAILY@ IV 02/07/17 21:00 03/09/17 20:59 Physical Exam Date Time Temp Pulse Resp B/P (MAP) Pulse Ox O2 Delivery O2 Flow Rate FiO2 02/07/17 16:36 36.8 87 18 133/76 (95) 96 Room Air 02/07/17 16:00 96 Nasal Cannula 2.0 02/07/17 12:00 95 Nasal Cannula 2.0 02/07/17 11:42 36.8 89 16 129/93 (105) 94 Room Air 02/07/17 08:24 36.9 84 16 137/80 (99) 96 Nasal Cannula 02/07/17 08:00 95 Nasal Cannula 2.0 02/07/17 04:15 79 20 141/95 95 2.0 02/07/17 04:00 95 Nasal Cannula 2.0 02/07/17 03:40 37.0 90 22 157/98 94 02/07/17 03:10 37.1 82 19 145/85 96 2.0 02/07/17 02:55 37.0 80 23 141/86 95 2.0 02/07/17 02:41 37.3 81 20 147/88 95 2.0 02/07/17 02:00 37.4 87 20 134/87 95 2.0 02/07/17 01:30 37.7 82 20 135/89 96 2.0 02/07/17 01:15 37.6 84 20 133/81 96 2.0 02/06/17 23:53 81 16 94 Room Air 02/06/17 23:37 36.9 93 21 161/88 93 Room Air 02/06/17 23:15 37.2 89 20 149/83 95 02/06/17 23:13 20 149/83 95 Room Air 02/06/17 22:21 89 16 144/87 93 Room Air 02/06/17 21:19 37.2 85 20 152/92 93 02/06/17 20:46 37.2 85 20 158/91 95 Room Air 02/06/17 20:42 96 02/06/17 20:30 37.2 85 20 158/91 95 02/06/17 20:15 37.0 87 20 173/84 95 02/06/17 19:55 37.0 85 20 152/89 96 02/06/17 19:55 152/79 02/06/17 19:42 37.0 84 20 152/79 95 02/06/17 18:50 83 20 120/69 95 Room Air 02/06/17 17:50 99 20 149/76 95 Room Air Laboratory Results Last 24 Hours Test 02/06/17 23:38 02/06/17 23:47 02/07/17 06:14 02/07/17 12:06 White Blood Count 2.48 K/uL 3.82 K/uL Red Blood Count 2.51 M/uL 2.77 M/uL Hemoglobin 7.5 g/dL 8.7 g/dL 8.4 g/dL Hematocrit 22.0 % 24.2 % 24.2 % Mean Corpuscular Volume 87.6 fL 87.4 fL Mean Corpuscular Hemoglobin 29.9 pg 31.4 pg Mean Corpuscular Hemoglobin Concent 34.1 g/dl 36.0 g/dl Platelet Count 8 K/uL 10 K/uL RDW Standard Deviation 55.9 fL 53.3 fL RDW Coefficient of Variation 18.3 % 17.3 % Nucleated RBC Absolute Count (auto) 0.03 K/uL 0.06 K/uL Neutrophils % (Manual) 15.9 % 16.0 % Lymphocytes % (Manual) 36.3 % 13.0 % Eosinophils % (Manual) 0.9 % Basophils % (Manual) 0.9 % Blast Cells % 46.0 % 68.0 % Nucleated Red Blood Cells % 1.1 % 1.5 % Neutrophils # (Manual) 0.39 K/uL 0.61 K/uL Total Absolute Neutrophils 0.39 K/uL 0.61 K/uL Lymphocytes # (Manual) 0.90 K/uL 0.50 K/uL Total Absolute Lymphocytes 0.90 K/uL 0.50 K/uL Eosinophils # (Manual) 0.02 K/uL Basophils # (Manual) 0.02 K/uL Blast Cells # 1.14 K/uL 2.60 K/uL Platelet Estimate SIGNIFIC DECREASED Immature Platelet Fraction 14.9 % Polychromasia 1+ 1+ Tear Drop Cells 1+ 1+ Ovalocytes 1+ Peripheral Blood Smear Path Consult Absolute Reticulocyte Count 0.10 10^6/uL Percent Reticulocyte Count 4.1 % Iron Level 144 mcg/dl Total Iron Binding Capacity 257 mcg/dl Transferrin 191 mg/dl Transferrin % Saturation 54 % Ferritin 93.1 ng/ml Vitamin B12 Level > 2000 pg/mL Folate 18.04 ng/mL Hepatitis C Antibody Screen NEG Monocytes % (Manual) 3.0 % Monocytes # (Manual) 0.11 K/uL
[2017-02-07] MEDS: PANTOprazole INJ 40 MG in SYRINGE 0 ML IV SCH (21:00)
[2017-02-07] MEDS: LEVOFLOXACIN 750 MG TAB PO SCH (21:00)
[2017-02-08 03:22] VITALS: BP 132/80; PULSE 76; TEMP 37.1; O2SAT 93
[2017-02-08 05:19] LABS: HEMATOCRIT 22.9 % (37-47); MEAN CELL VOLUME 88.8 fL (80-100); MEAN CORPUSCULAR HEMOGLOBIN 30.2 pg (25-34); MEAN CORPUSCULAR HGB CONC 34.1 g/dl (32-36); PLATELET COUNT 5 K/uL (130-400); RED BLOOD COUNT 2.58 M/uL (4.2-5.4); WHITE BLOOD COUNT 3.27 K/uL (4.8-10.8)
[2017-02-08 07:07] LABS: OVALOCYTES 1+; POLYCHROMASIA 1+; TEAR DROP CELLS 1+
[2017-02-08 07:09] LABS: BASO ABS # 0.05 K/uL (0-0.2); BASOPHIL % 1.4 %; COMPLETE YES; LYMPH ABS # 0.94 K/uL (1.2-3.4); LYMPHOCYTE % 28.6 %; NEUTROPHILS % 21.4 %
[2017-02-08 07:26] VITALS: BP 128/77; PULSE 81; TEMP 37; O2SAT 92
[2017-02-08] MEDS: PANTOprazole INJ 40 MG in SYRINGE 0 ML IV SCH (07:52)
[2017-02-08] MEDS: CITALOPRAM 40 MG TAB PO SCH (07:53)
[2017-02-08] MEDS: ACETAMINOPHEN 325 MG TAB PO PRN ×2 (10:49→15:33)
[2017-02-08 11:00] VITALS: BP 153/92; PULSE 81; TEMP 36.9; O2SAT 95
[2017-02-08] MEDS ORDERED: LEVOFLOXACIN 750 MG TAB PO SCH (11:00)
[2017-02-08 12:00] VITALS: O2SAT 95
--- NOTE | 2017-02-08 12:29 | Hematology/Oncology Prog Note ---
Hematology/Onc Progress Note Date of Service Feb 08, 2017. Subjective I saw her at bedside in the morning, she was sitting comfortably in the chair, has some bruising involving the extremities but no active bleeding noted, had some black color stool earlier, denies any abdominal pain, she says that she feels much better, no fever, no increasing nausea or vomiting, tiredness present , no increasing leg edema, no new hemoptysis, no new pulmonary symptoms, mild coughing present, has some mild headache, she took Tylenol for the symptomatic treatment, no new chest pain. I reviewed her blood workup done today morning, WBC 3200, H&H of 7.8/23, Platelet count of of 5000, Peripheral blood for flow cytometry for AML workup is pending. Fibrinogen level is on the lower side around 111. I reviewed with her regarding the imaging studies done during this also has, she has multiple bilateral lung nodules suggest metastatic disease further progressed in the lungs, her main issue is significant pancytopenia which is most likely related to the new diagnosis of acute myeloid leukemia, so far she received 2 units of platelet transfusion and 1 unit of PRBC, platelet count has remained quite low around 5000. Presently she is receiving Levaquin for E coli UTI. She will continue the cough suppressant and PPI therapy. Once again I had a discussion about her overall clinical condition and poor prognosis associated with that, she understood that quite well, she says that earlier she signed paper for DNR/DNI. She would like to have comfort care, she is not interested in pursuing aggressive kind of diagnostic workup as well as the treatment. I think her platelet count is likely to stay on the lower side in spite of giving platelet transfusions I would like to hold giving additional platelet at this time. She could go home soon with home hospice services. Dr. Clemente Galaviz Hem/Onc (This note was completed using the dictation program Fluency Direct. As such, there may be misspellings, word substitutions, or other variations that should not change the essence of the clinical content of this encounter note. If there is need for further clarification, please direct questions to the provider listed above.) Vital Signs Vital Signs Past 12 Hours Date Time Temp Pulse Resp B/P (MAP) Pulse Ox O2 Delivery O2 Flow Rate FiO2 02/08/17 12:00 95 Room Air 02/08/17 11:00 36.9 81 18 153/92 (112) 95 Room Air 02/08/17 08:09 Room Air 02/08/17 07:26 37.0 81 16 128/77 (94) 92 Room Air 02/08/17 03:22 37.1 76 18 132/80 (97) 93 Room Air
--- NOTE | 2017-02-08 16:05 | Palliative Care Consultation ---
Consultation Date of Consultation: Feb 08, 2017. Requesting Physician: Dr. Crowe Attending Physician: Dr. Crowe Reason for Consultation: Goals of care History of Present Illness This incredibly pleasant 66 year old female with PMH pancreatic and lung cancer , s/p Whipple and multiple chemotherapies, abnormal PET/CT scan with pulmonary nodules/metastatic disease and hepatic mass, presented to the hospital with c/o SOB and abnormal bruising. Given her history and lab work, she is presumed to now also have an acute leukemia-- being followed by heme/onc. Found to have pneumonia as well-- she is on abx. Patient also noted to have dark tarry stools yesterday and some hemoptysis on presentation-- these have both resolved. She had 2 units of platelets and 1 unit PRBC, no plan for further transfusion at this time. Yana has made it very clear that she is accepting of her disease and does not wish to pursue any further diagnostic testing, invasive procedures, or aggressive treatment. She is requesting to go home with her and enjoy what remaining time she has left. Palliative care consulted to establish goals of care and discuss hospice/comfort. Past Medical/Surgical History Medical History: Pancreatic cancer s/p Whipple and chemotherapy Non-small cell lung carcinoma s/p chemotherapy Recurrent UTI Depression Abnormal PET/CT with bilateral lung nodules Diverticulosis Social History Smoking Status: Never Smoker History of Alcohol Use: Yes (WINE/GIN ONCE A MONTH) Marital Status: Occupation Status: retired Review of Systems Constitutional: No weakness, No fatigue Respiratory: No cough, No shortness of breath, No dyspnea on exertion (SOB has resolved) Cardiac: No chest pain Abdomen: No pain, No nausea, No vomiting Female : No problem reported Psychiatric: No depression symptoms, No anxiety Heme: + abnormal bleeding/bruising Allergies Coded Allergies: No Known Allergies (Verified , 02/06/17) Medications Current Inpatient Medications Medications (Trade) Dose Ordered Sig/Bora Route Start Time Stop Time Status Last Admin Dose Admin Ioversol (Optiray 320) 111 ml UD PRN IV 02/06/17 20:45 02/10/17 20:44 Albuterol/ Ipratropium (Duoneb) 3 ml Q2H PRN INH 02/06/17 22:30 03/08/17 22:29 Acetaminophen (Tylenol Tab) 650 mg Q4H PRN PO 10/23/17 23:15 03/08/17 23:14 02/08/17 15:33 650 MG Nitroglycerin (Nitrostat Tab) 0.4 mg UD PRN SL 02/06/17 23:15 03/08/17 23:14 Ondansetron HCl (Zofran Inj) 4 mg Q6H PRN IV 02/06/17 23:15 03/08/17 23:14 02/08/17 06:30 4 MG Lorazepam (Ativan Inj) 0.5 mg Q4H PRN IV 02/06/17 23:15 03/08/17 23:14 Tramadol HCl (Ultram Tab) 25 mg Q6H PRN PO 02/06/17 23:15 03/08/17 23:14 Hydromorphone HCl (Dilaudid Inj) 0.5 mg Q3H PRN IV 02/06/17 23:15 02/20/17 23:14 Citalopram Hydrobromide (celeXA TAB) 40 mg QAM PO 02/07/17 09:00 03/09/17 08:59 02/08/17 07:53 40 MG Polyethylene (Miralax Powder Packet) 17 gm DAILY PRN PO 02/06/17 23:15 03/08/17 23:14 Heparin Sodium (Porcine) (Heparin 100 Unit/ml 5ml Flush) 5 ml PRN PRN IV 02/07/17 00:45 03/09/17 00:44 Levofloxacin (Consult) 1 ea UD PRN N/A 02/07/17 01:15 03/09/17 01:14 Benzonatate (Tessalon Perles Cap) 100 mg Q8H PRN PO 02/07/17 05:15 03/09/17 05:14 Levofloxacin (Levaquin Tab) 750 mg HS PO 02/07/17 21:00 02/12/17 21:01 02/07/17 21:00 750 MG Pantoprazole Sodium 40 mg/ Syringe 10 ml @ 5 mls/min DAILY@ IV 02/07/17 21:00 03/09/17 20:59 02/08/17 07:52 5 MLS/MIN Physical Exam Date Time Temp Pulse Resp B/P (MAP) Pulse Ox O2 Delivery O2 Flow Rate FiO2 02/08/17 12:00 95 Room Air 02/08/17 11:00 36.9 81 18 153/92 (112) 95 Room Air 02/08/17 08:09 Room Air 02/08/17 07:26 37.0 81 16 128/77 (94) 92 Room Air 02/08/17 03:22 37.1 76 18 132/80 (97) 93 Room Air 02/07/17 23:38 37.3 83 20 133/79 (97) 91 02/07/17 20:00 96 Nasal Cannula 2.0 02/07/17 19:56 36.9 82 18 132/76 (94) 95 Room Air 02/07/17 16:36 36.8 87 18 133/76 (95) 96 Room Air 02/07/17 16:00 96 Nasal Cannula 2.0 General Appearance: WD/WN, no apparent distress ENT: hearing grossly normal Neck: supple, no JVD Respiratory: no respiratory distress, no accessory muscle use Cardiovascular: regular rate, rhythm, no edema Abdomen: + pertinent finding (no abdominal assessment at this time) Neurologic/Psychiatric: alert, normal mood/affect, oriented x 3 Laboratory Results Last 24 Hours Test 02/08/17 04:13 White Blood Count 3.27 K/uL Red Blood Count 2.58 M/uL Hemoglobin 7.8 g/dL Hematocrit 22.9 % Mean Corpuscular Volume 88.8 fL Mean Corpuscular Hemoglobin 30.2 pg Mean Corpuscular Hemoglobin Concent 34.1 g/dl Platelet Count 5 K/uL RDW Standard Deviation 55.9 fL RDW Coefficient of Variation 18.3 % Nucleated RBC Absolute Count (auto) 0.03 K/uL Neutrophils % (Manual) 21.4 % Lymphocytes % (Manual) 28.6 % Monocytes % (Manual) 1.4 % Basophils % (Manual) 1.4 % Blast Cells % 47.2 % Nucleated Red Blood Cells % 1.1 % Neutrophils # (Manual) 0.70 K/uL Total Absolute Neutrophils 0.70 K/uL Lymphocytes # (Manual) 0.94 K/uL Total Absolute Lymphocytes 0.94 K/uL Monocytes # (Manual) 0.05 K/uL Basophils # (Manual) 0.05 K/uL Blast Cells # 1.54 K/uL Polychromasia 1+ Tear Drop Cells 1+ Ovalocytes 1+ Fibrinogen 111 mg/dl Assessment & Plan Palliative Performance Scale: 70 % Problem list: SOB Abnormal bruising Hemoptysis- resolved Pancytopenia- possible/likely leukemia Hx lung and pancreatic cancer Bilateral lung nodules concerning for metastatic disease on CT/PET Pneumonia Hepatic mass GI bleed- dark tarry stool yesterday, none since UTI- E. coli Goals of care (Z51.5) Palliative care recs: Discussed with patient at bedside. -Patient's wish is strictly for comfort. She does not wish to pursue any further diagnostic testing or treatment for her disease. -Patient states she's had a good life and is not afraid of what is to come. She has also undergone lots of treatment including surgeries and chemotherapies. She no longer wishes to pursue that type of treatment. -Patient is completely functionally independent, comfortable, and currently has no needs at home. However, given her metastatic disease and wish to not pursue any further treatment and desire to stay out of hospital, I would recommend hospice. -Hospice care was discussed, patient is agreeable. She is following up with Dr. Galaviz soon as outpatient. By then, she will choose a hospice agency and have Dr. Galaviz write the order. -Switch to PO abx before discharge for pneumonia. -Per heme/onc- no plan for further transfusions of blood products at this time. -GIB and hemoptysis resolved. -No pain or symptoms at this time. -Was having SOB at home, but has improved/resolved since coming to hospital. -POLST form was explained and gone over. Patient would like to fill this out at a later time. -She does have a living will and advance directive. -I have nothing further to add at this time from a palliative standpoint. Thank you very much for consulting me on this extremely pleasant patient. Please contact me with any further palliative care needs.
--- NOTE | 2017-02-08 16:12 | Progress Note ---
Medicine Progress Note Date & Time of Visit: Feb 08, 2017 at 10:51. Subjective Pt was seen and examined Sitting at the edge of the bed with no distress Pt said that she feels better today She said that she had a dark bowel movement today No hemoptysis episode Pt would like to go home She does not want any aggressive management She wants to be comfort measure Denies any chest pain, palpitation, dizziness and SOB Objective Last 8 Hrs Date Time Temp Pulse Resp B/P (MAP) Pulse Ox O2 Delivery O2 Flow Rate FiO2 02/08/17 12:00 95 Room Air 02/08/17 11:00 36.9 81 18 153/92 (112) 95 Room Air 02/08/17 08:09 Room Air Physical Exam: General- No acute distress Head- atraumatic Eyes- PERRL, EOMI ENT- oropharynx clear Neck- supple, no JVD Lungs- No wheezing, no rales Heart- regular rhythm; no murmur Abdomen- normal bowel sounds, soft Extremities- no calf tenderness Neuro- alert, AAOx3, no motor and sensory deficit Skin- warm & dry Laboratory Results: Last 24 Hours Test 02/08/17 04:13 White Blood Count 3.27 K/uL Red Blood Count 2.58 M/uL Hemoglobin 7.8 g/dL Hematocrit 22.9 % Mean Corpuscular Volume 88.8 fL Mean Corpuscular Hemoglobin 30.2 pg Mean Corpuscular Hemoglobin Concent 34.1 g/dl Platelet Count 5 K/uL RDW Standard Deviation 55.9 fL RDW Coefficient of Variation 18.3 % Nucleated RBC Absolute Count (auto) 0.03 K/uL Neutrophils % (Manual) 21.4 % Lymphocytes % (Manual) 28.6 % Monocytes % (Manual) 1.4 % Basophils % (Manual) 1.4 % Blast Cells % 47.2 % Nucleated Red Blood Cells % 1.1 % Neutrophils # (Manual) 0.70 K/uL Total Absolute Neutrophils 0.70 K/uL Lymphocytes # (Manual) 0.94 K/uL Total Absolute Lymphocytes 0.94 K/uL Monocytes # (Manual) 0.05 K/uL Basophils # (Manual) 0.05 K/uL Blast Cells # 1.54 K/uL Polychromasia 1+ Tear Drop Cells 1+ Ovalocytes 1+ Fibrinogen 111 mg/dl Assessment & Plan Pneumonia Present with Hemoptysis associated with SOB CTA chest showed no evidence of pulmonary embolus in the main, lobar, or segmental pulmonary arteries. 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 Galaviz was notified about the flow cytometry result Also result discussed with patient and the son Pt refused any invasive procedure such as bone marrow biopsy Pt wants to be only comfort measure No further blood product transfusion as per oncology She wants to go home Palliative care consult Hx lung cancer sp chemotherapy (2015), CTA chest showed evidence of diffuse/multifocal pulmonary metastatic disease. lesions have increased in size from the 12/30/2015 PET examination. She does not interested on any chemo therapy treatment Focus on supportive care Refuse any aggressive management Want comfort measure only Hx pancreatic cancer s/p surgery/chemotherapy (2015) CT showed is peripancreatic stranding and trace fluid, typical in appearance for acute pancreatitis Low lipase Advanced diet to regular Continue monitor Hepatic Mass CT showed a 2.4 cm ovoid lesion seen in hepatic segment VIII. This is markedly hypervascular and atypical in appearance for metastatic disease. No invasive procedure as per patient She does not want chemo therapy Comfort measure only Hemoptysis Predisposed by severe thrombocytopenia and cough Case discussed with GI No intervention procedure due to her low platelet Will need to transfer to a tertiary center if any procedure needed. Hbg 7.8 No active bleeding GI bleed Has been having dark stool Positive guaiac Protonix drip d/c starting on protonix BID IV GI consult cancelled since pt does not want any interventional procedure Hg 7.8 UTI Continue Levaquin Urine cx growth E. Coli Hyperglycemia Hba1c 6.4 continue monitor BS DVT px on SCDs CODE STATUS DNR Consultants: Oncology/Hematology Current Inpatient Medications: Current Inpatient Medications Medications (Trade) Dose Ordered Sig/Bora Route Start Time Stop Time Status Last Admin Dose Admin Ioversol (Optiray 320) 111 ml UD PRN IV 02/06/17 20:45 02/10/17 20:44 Albuterol/ Ipratropium (Duoneb) 3 ml Q2H PRN INH 02/06/17 22:30 03/08/17 22:29 Acetaminophen (Tylenol Tab) 650 mg Q4H PRN PO 02/06/17 23:15 03/08/17 23:14 02/08/17 15:33 650 MG Nitroglycerin (Nitrostat Tab) 0.4 mg UD PRN SL 02/06/17 23:15 03/08/17 23:14 Ondansetron HCl (Zofran Inj) 4 mg Q6H PRN IV 02/06/17 23:15 03/08/17 23:14 02/08/17 06:30 4 MG Lorazepam (Ativan Inj) 0.5 mg Q4H PRN IV 02/06/17 23:15 03/08/17 23:14 Tramadol HCl (Ultram Tab) 25 mg Q6H PRN PO 02/06/17 23:15 03/08/17 23:14 Hydromorphone HCl (Dilaudid Inj) 0.5 mg Q3H PRN IV 02/06/17 23:15 02/20/17 23:14 Citalopram Hydrobromide (celeXA TAB) 40 mg QAM PO 02/07/17 09:00 03/09/17 08:59 02/08/17 07:53 40 MG Polyethylene (Miralax Powder Packet) 17 gm DAILY PRN PO 02/06/17 23:15 03/08/17 23:14 Heparin Sodium (Porcine) (Heparin 100 Unit/ml 5ml Flush) 5 ml PRN PRN IV 02/07/17 00:45 03/09/17 00:44 Levofloxacin (Consult) 1 ea UD PRN N/A 02/07/17 01:15 03/09/17 01:14 Benzonatate (Tessalon Perles Cap) 100 mg Q8H PRN PO 02/07/17 05:15 03/09/17 05:14 Levofloxacin (Levaquin Tab) 750 mg HS PO 02/07/17 21:00 02/12/17 21:01 02/07/17 21:00 750 MG Pantoprazole Sodium 40 mg/ Syringe 10 ml @ 5 mls/min DAILY@ IV 02/07/17 21:00 03/09/17 20:59 02/08/17 07:52 5 MLS/MIN
[2017-02-08 16:18] VITALS: BP 127/78; PULSE 71; TEMP 36.9; O2SAT 96
[2017-02-08] MEDS ORDERED: LVQ750 PO (16:22)
--- NOTE | 2017-02-08 16:50 | Discharge Instructions ---
Discharge Instructions Date of Service Feb 08, 2017. Admission Reason for Admission: GI bleeding, Hemoptysis Discharge Discharge Diagnosis / Problem: Urinary tract Infection, GI bleed, Thrombocytopenia, Pneumonia Discharge Goals Goal(s): Decrease discomfort, Improve function, Improve disease control Activity Recommendations Activity Limitations: resume your previous activity (as tolerated) . Instructions / Follow-Up Instructions / Follow-Up Follow up with your primary care provider Dr. Foy on 02/13 @ 11:05 am Follow up with your oncology Dr. Galaviz Complete the course of the antibiotic Avoid taking NSAID to prevent risk of bleeding. Current Hospital Diet Patient's current hospital diet: Regular Diet Discharge Diet Recommended Diet: Regular Diet Pending Studies Studies pending at discharge: no Laboratory Results Hemoglobin A1c Test 02/06/17 16:12 Range/Units Estimated Average Glucose 137 mg/dl Hemoglobin A1c 6.4 H 4.5-5.6 % Medical Emergencies . Who to Call and When: Medical Emergencies: If at any time you feel your situation is an emergency, please call 911 immediately. . Non-Emergent Contact Non-Emergency issues call your: Primary Care Provider Call Non-Emergent contact if: you have any medication questions . . "Provider Documentation" section prepared by Deisi Crowe. . VTE Core Measure Inpt VTE Proph given/why not?: SCD's, Contraindicated (GI bleed)
[2017-02-08] MEDS: LEVOFLOXACIN 750 MG TAB PO SCH (17:19)
--- NOTE | 2017-02-08 19:47 | Hematology/Oncology Prog Note ---
Hematology/Onc Progress Note Date of Service Feb 08, 2017. Subjective I saw her briefly in the evening, discussed with them regarding the flow cytometry which is positive for acute promyelocytic leukemia. Patient 's son was also at bedside, I reviewed with both of them regarding the a new diagnosis of leukemia, overall prognosis remains quite poor, also discussed with him regarding what to expect in the near future, she may have a increasing bleeding complications because of low platelet count, she may also experience DIC with new diagnosis of acute promyelocytic leukemia with multiple bleeding sites, may experience pulmonary hemorrhage, she has extensive pulmonary metastatic disease , after discussion with the patient, she is in agreement with the home hospice services. She says that she has agency names, she will call them. I told her that I will be available for any questions that she may have it or hospice nurses may have it. Vital Signs Vital Signs Past 12 Hours Date Time Temp Pulse Resp B/P (MAP) Pulse Ox O2 Delivery O2 Flow Rate FiO2 02/08/17 16:18 36.9 71 18 127/78 (94) 96 Room Air 02/08/17 12:00 95 Room Air 02/08/17 11:00 36.9 81 18 153/92 (112) 95 Room Air 02/08/17 08:09 Room Air
[2017-02-09 06:41] LABS: NEO FLOW LYMPH/LEUK STND SEE NEO MISC
--- NOTE | 2017-02-09 08:07 | Discharge Summary ---
Discharge Summary Date of Service Feb 09, 2017. Discharge Summary Admission Date: Feb 06, 2017 at 22:53 Discharge Date: Feb 08, 2017 Discharge Disposition: Home Principal Diagnosis: Pneumonia Secondary Diagnoses/Problems: Hemoptysis Pancytopenia UTI Acute promyelocytic Leukemia Lung CA Hepatic Mass Hx Pancreatic Ca GI bleed Thrombocytopenia Procedures: CT ANGIOGRAM OF THE CHEST; CT SCAN OF THE ABDOMEN AND PELVIS WITH IV CONTRAST CLINICAL HISTORY: Atypical chest pain. Generalized abdominal pain. History of non-small cell lung cancer an pancreatic cancer. COMPARISON STUDY: Chest x-ray dated 02/06/2017. PET/CT dated 12/30/2015. TECHNIQUE: Following the IV administration of 120 of Optiray 320, CT angiogram of the chest is performed from the upper abdomen to the thoracic inlet using the pulmonary embolus protocol. CT scan of the abdomen and pelvis was then performed from the lung bases to the proximal femora. Images are reviewed in the axial, sagittal, and coronal planes. 3-D MIPS images of the chest were created and assessed. IV contrast was administered without complication. Automated dose control exposure was utilized. A dose lowering technique was utilized adhering to the principles of ALARA. CT DOSE: 2068.08 mGy.cm FINDINGS: CHEST: Thyroid: Imaged portions of the thyroid gland are normal in size and attenuation. There are numerous thyroid nodules. The largest appears hypervascular and is located in the right lobe measuring 1.7 cm. Thoracic aorta: The thoracic aorta is normal in caliber and demonstrates standard 3-vessel arch anatomy. No dissection is seen. A left subclavian central venous infusion port is in place. Pulmonary vasculature: The pulmonary trunk is normal in caliber. There are no filling defects identified in the main, lobar, or segmental pulmonary arteries to indicate pulmonary embolus. Heart: The heart is normal in size and configuration, and without pericardial effusion. Lungs and pleural spaces: There are numerous (greater than 20) large pulmonary mass lesions. Some of these contain central calcifications and foci of central cavitation. The appearance is consistent with multifocal pulmonary metastatic disease. A large lesion in the anterior right upper lobe on image #228 measures approximately 6 x 3 cm. A large lesion at the posterior right lung base on image #116 measures approximate 7 x 4 cm. A lesion in the left lower lobe on image #129 measures approximately 5 x 4 cm. Patchy airspace consolidation is identified in the right lower lobe. No pleural effusion is seen. The trachea and central airways are clear. Mediastinum: There are scattered subcentimeter mediastinal lymph nodes. These are not pathologically enlarged by size criteria. [place]: There are calcified hilar lymph nodes. No hilar adenopathy is identified. Axillae: There is no axillary lymphadenopathy. Bony thorax: The skeletal structures are heterogeneously osteopenic. No definite lytic or blastic lesions are identified. Advanced arthritic change is present in the shoulders. ABDOMEN AND PELVIS: Liver: The contrast-enhanced liver is normal in size and contour. The liver demonstrates diffusely diminished attenuation consistent with hepatic steatosis. There is trace pneumobilia. There is no intrahepatic or ductal dilatation. The hepatic veins and portal veins are patent. An ovoid hypervascular lesion in segment VIII measures 2.4 cm as seen on image #51. A subcentimeter hypervascular focus is seen in segment V on axial image #127. A 3.1 cm cystic lesion on the anterior aspect of the left lobe seen on image #56 is unchanged from previous. Gallbladder: Surgically absent noting clips in the gallbladder fossa. Spleen: Normal in size and attenuation. Pancreas: The pancreas is atrophic. A pancreatic stent is in place. There is peripancreatic stranding and trace fluid suggesting acute pancreatitis. No organized peripancreatic fluid collection is identified. The splenic vein is patent. Adrenal glands: A 1.4 cm nodule arising from or located adjacent to the right adrenal gland is unchanged from 12/30/2015 as seen on image #129. The adrenal glands are otherwise normal in appearance. Kidneys: The contrast enhanced kidneys demonstrate mild cortical atrophy and are without hydronephrosis. The kidneys enhance symmetrically. Scattered subcentimeter cortical hypodensities likely represent cysts but are too small for definitive characterization. Abdominal vasculature: The abdominal aorta is normal in course and caliber noting mild atherosclerotic calcification. Stomach and bowel: The duodenum is normal in configuration. There are large ventral hernias which contain nonobstructed loops of small bowel and colon. No bowel obstruction is seen. The appendix is well-visualized and normal. Peritoneum: There is no intraperitoneal free air or abdominal ascites. There is a fat-containing umbilical/ventral hernia. Lymphadenopathy: Prominent peripancreatic and portacaval nodes measure up to 10 mm short axis. Metallic fiducials are suggested in the portacaval node on image #117. An implant/node anterior to the abdominal aorta is seen on image #168 and measures 1.8 cm. Pelvic viscera: Evaluation of the pelvis is degraded by streak artifact from a right hip arthroplasty. The bladder, uterus, and adnexa are normal as visualized. Skeletal structures: The skeletal structures are heterogeneously osteopenic. Mild lumbosacral spondylosis is observed. No definite lytic or blastic lesions are seen. A right hip arthroplasty is in place. IMPRESSION: 1. There is no evidence of pulmonary embolus in the main, lobar, or segmental pulmonary arteries. 2. There is evidence of diffuse/multifocal pulmonary metastatic disease. These lesions have increased in size from the 12/30/2015 PET examination. 3. There is patchy airspace consolidation seen throughout the right lower lobe, likely representing an infectious/inflammatory pneumonitis. Clinical correlation will be required. 4. A pancreatic stent is in place. There is peripancreatic stranding and trace fluid, typical in appearance for acute pancreatitis. Correlation with the patient's serum amylase/lipase levels will be required. 5. There is a 2.4 cm ovoid lesion seen in hepatic segment VIII. This is markedly hypervascular and atypical in appearance for metastatic disease. Given the appearance a vascular lesion such as aneurysm/pseudoaneurysm is suspected, especially if there has been previous instrumentation. Other etiologies such as hypervascular metastasis or hemangioma are considered less likely. This could not be seen in the 12/30/2015 PET examination; however, comparison is significantly suboptimal due to lack of IV contrast on the prior study. Clinical correlation will be essential. 6. Hepatic steatosis. 7. Mildly enlarged peripancreatic lymph nodes, a lesion within/adjacent to the right adrenal gland, and an implant along the anterior aspect of the abdominal aorta are concerning for metastatic disease. Fiducials are identified in this region. 8. There are ventral hernias containing nonobstructed loops of small bowel and colon. No bowel obstruction is identified. 9. Additional findings as above. Electronically signed by: Hiren Joiner M.D. 02/06/2017 10:13 PM Dictated Date/Time: 02/06/2017 9:[address] SCAN OF THE BRAIN WITHOUT IV CONTRAST CLINICAL HISTORY: Headache. COMPARISON STUDY: No priors. TECHNIQUE: Unenhanced axial CT scan of the brain is performed from the vertex to the skull base. FINDINGS: Brain parenchyma: There are age-related involutional changes noting minimal subcortical and periventricular microangiopathic change. There is no hemorrhage, mass effect, or evidence of acute territorial ischemia by CT criteria. Cordon-white matter is preserved. No extra-axial fluid collection is seen. Ventricles, sulci, cisterns: Prominent secondary to involutional change. Intracranial vasculature: Intracranial vessels at the skull base are normal as visualized. Calvarium: Unremarkable. Sinuses and mastoids: The visualized paranasal sinuses are clear. The mastoid air cells are well pneumatized. Orbits: The bony orbits are grossly intact. IMPRESSION: There is no hemorrhage, mass effect, or evidence of acute territorial ischemia by CT criteria. Electronically signed by: Hiren Joiner M.D. 02/06/2017 9:48 PM Dictated Date/Time: 02/06/2017 9:47 PM Consultations: Oncology/Hematology Medication Reconciliation New Medications: Levofloxacin (Levofloxacin) 750 Mg Tab 750 MG PO HS for 3 Days, TAB Continued Medications: Acetaminophen (Tylenol) 500 Mg Tab 1000 MG PO Q6 PRN for Pain or Fever, TAB Acetaminophen/Diphenhydramine (Tylenol Pm) 500 Mg/25 Mg Tab 1 TAB PO HS PRN Citalopram (Citalopram Hydrobromide) 40 Mg Tab 40 MG PO QAM Green Tea (Camillia Sinensis) (Green Tea) 1 Pow Pow 1 DOSE PO DAILY Omeprazole (Prilosec) 20 Mg Cap 20 MG PO DAILY, CAP Pancrelipase (Lipase-Protease- (Creon) 1 Cap Cap 2 CAP PO WM Pancrelipase (Lipase-Protease- (Creon) 1 Cap Cap 1 CAP PO SNACKS Polyethylene Glycol 3350 (Miralax) 1 Pow Pow 1 DOSE PO DAILY PRN for Constipation Probiotic Product (Probiotic) 1 Cap Cap 1 CAP PO DAILY Admission Information HPI (per Admitting provider): CHIEF COMPLAINT: Abnormal blood work. HISTORY OF PRESENT ILLNESS: History obtained from patient and records. Medical history is significant for pancreatic cancer status post surgery/ chemotherapy 2014, NSCLC (adenocarcinoma) sp chemotherapy 2015, past tobacco abuse, history of ataxia telangiectasia mutation as per records, recurrent UTIs secondary to chronic interstitial cystitis , mood disorder. In June 2015, the patient was noted to have incidental findings of new bilateral lung nodules on CT surveillance study for her pancreatic cancer. FNA showed adenocarcinoma. Patient underwent wedge resection of left lower lobe nodule. Chemotherapy from September to March 2016 by [facility]. She subsequently decided to hold off any kind of treatments. Outpatient blood work last July 2016 showed white cell count of 3.69, Hemoglobin drop to 10 from normal baselines. In the last few weeks, the patient noted easy bruising. She also noted dark stools, some vague left-sided abdominal discomfort. Denies excessive intake of NSAIDs. No hematemesis. Last 2 weeks, the patient also noted different smelly urine. Yesterday, patient noted noisy breathing like "bubbles in my chest." Some shortness of breath on exertion. This morning, px woke up with hemoptysis. achy headache symptoms as well. Outpatient lab work showed hemoglobin of 8.6, hematocrit 27, white cell count 2.3, platelets noted to be 7. Patient sent to the Emergency Room. One unit pheresed platelets transfused. Px given ceftriaxone for UTI. Physical Exam (per Admitting): PHYSICAL EXAMINATION: VITAL SIGNS: Blood pressure was noted to be 120/69, pulse rate 83, RR 22, T 37 sats 95% on room air. GENERAL: Noted to be pleasant, no respiratory distress. SKIN: Pallor, ecchymosis on the arms. warm. HEENT: Pale palpebral conjunctivae. Dry buccal mucosa. Pupils equally reactive to light. Dry buccal mucosa. NECK: Short neck. No JVD. Supple, no tenderness. CHEST: Rhonchi, no tenderness. ABDOMEN: Some distension, nontender. RECTAL: Intact sphincter, dark stool, heme positive. EXTREMITIES: Minimal LE edema, no tenderness, No gross deformities. NEUROLOGIC: Coherent. No gross focality. Hospital Course Pneumonia Present with Hemoptysis associated with SOB CTA chest showed no evidence of pulmonary embolus in the main, lobar, or segmental pulmonary arteries. 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 Galaviz was notified about the flow cytometry result Also result discussed with patient and the son Pt refused any invasive procedure such as bone marrow biopsy Pt wants to be only comfort measure No further blood product transfusion as per oncology She wants to go home Palliative care consult Hx lung cancer sp chemotherapy (2015), CTA chest showed evidence of diffuse/multifocal pulmonary metastatic disease. lesions have increased in size from the 12/30/2015 PET examination. She does not interested on any chemo therapy treatment Focus on supportive care Refuse any aggressive management Want comfort measure only Hx pancreatic cancer s/p surgery/chemotherapy (2015) CT showed is peripancreatic stranding and trace fluid, typical in appearance for acute pancreatitis Low lipase Advanced diet to regular Continue monitor Hepatic Mass CT showed a 2.4 cm ovoid lesion seen in hepatic segment VIII. This is markedly hypervascular and atypical in appearance for metastatic disease. No invasive procedure as per patient She does not want chemo therapy Comfort measure only Hemoptysis Predisposed by severe thrombocytopenia and cough Case discussed with GI No intervention procedure due to her low platelet Will need to transfer to a tertiary center if any procedure needed. Hbg 7.8 No active bleeding GI bleed Has been having dark stool Positive guaiac Protonix drip d/c starting on protonix BID IV GI consult cancelled since pt does not want any interventional procedure Hg 7.8 UTI Continue Levaquin Urine cx growth E. Coli Hyperglycemia Hba1c 6.4 continue monitor BS DVT px on SCDs CODE STATUS DNR Total time spent on discharge = 35 minutes This includes examination of the patient, discharge planning, medication reconciliation, and communication with other providers. Discharge Instructions Discharge Instructions Date of Service Feb 08, 2017. Admission Reason for Admission: GI bleeding, Hemoptysis Discharge Discharge Diagnosis / Problem: Urinary tract Infection, GI bleed, Thrombocytopenia, Pneumonia Discharge Goals Goal(s): Decrease discomfort, Improve function, Improve disease control Activity Recommendations Activity Limitations: resume your previous activity (as tolerated) . Instructions / Follow-Up Instructions / Follow-Up Follow up with your primary care provider Dr. Foy on 02/13 @ 11:05 am Follow up with your oncology Dr. Galaviz Complete the course of the antibiotic Avoid taking NSAID to prevent risk of bleeding. Current Hospital Diet Patient's current hospital diet: Regular Diet Discharge Diet Recommended Diet: Regular Diet Pending Studies Studies pending at discharge: no Laboratory Results Hemoglobin A1c Test 02/06/17 16:12 Range/Units Estimated Average Glucose 137 mg/dl Hemoglobin A1c 6.4 H 4.5-5.6 % Medical Emergencies . Who to Call and When: Medical Emergencies: If at any time you feel your situation is an emergency, please call 911 immediately. . Non-Emergent Contact Non-Emergency issues call your: Primary Care Provider Call Non-Emergent contact if: you have any medication questions . . "Provider Documentation" section prepared by Deisi Crowe. . VTE Core Measure Inpt VTE Proph given/why not?: SCD's, Contraindicated (GI bleed) Additional Copies To Yoly Foy M.D.
== END 2017-02-08 17:25 | disposition home or self-care (01) | DRG 840 ==
LOC: C.EDB 15:54 → C.2E 22:53 → ENRESERV 23:02
PROVIDERS: ADMIT Internal Medicine; ATTEND Internal Medicine
DX: C92.Z0 Other myeloid leukemia not having achieved remission (principal); J18.9 Pneumonia, unspecified organism; D61.818 Other pancytopenia; N39.0 Urinary tract infection, site not specified; K92.2 Gastrointestinal hemorrhage, unspecified; C78.00 Secondary malignant neoplasm of unspecified lung; G11.3 Cerebellar ataxia with defective DNA repair; Z51.5 Encounter for palliative care; B96.20 Unspecified Escherichia coli [E. coli] as the cause of diseases classified elsewhere; R73.9 Hyperglycemia, unspecified; R16.0 Hepatomegaly, not elsewhere classified; F39 Unspecified mood [affective] disorder; Z79.899 Other long term (current) drug therapy; Z85.07 Personal history of malignant neoplasm of pancreas; Z66 Do not resuscitate; Z92.21 Personal history of antineoplastic chemotherapy; Z98.890 Other specified postprocedural states; Z87.891 Personal history of nicotine dependence; Z82.49 Family history of ischemic heart disease and other diseases of the circulatory system; Z80.51 Family history of malignant neoplasm of kidney; Z80.8 Family history of malignant neoplasm of other organs or systems